=== PATIENT | male | born 1955 | race Caucasian/White ===

== ENCOUNTER 2017-07-26 08:00 | Day surgery (SDC) | payer OTHER ==
[~2017-07-26 08:00] MED LIST: BENZONATATE100 M1 PO; BYSTOLIC5 MG PO; PRILOSEC20 M1 PO; ZYRTEC 10MG TAB10 MG PO
--- NOTE | 2017-07-26 09:24 | Operative Note ---
Colonoscopy ([place]) Procedure date: 07/26/17 Date of : 59 Procedure:Colonoscopy Colonoscopy with cold snare polypectomy Indications: Mr. Reynolds is a 62-year-old gentleman who is here for follow-up screening/ surveillance colonoscopy. He did have a colonoscopy in May 2010 (Dr. Quentin Patel) at which time a single sigmoid 5 mm polyp (tubular adenoma 1) was removed. The patient does state that his maternal uncle had colon cancer. He does have some occasional constipation. He reports no abdominal pain, weight loss, change in his bowel habits or rectal bleeding. Performing Provider: Sam Henderson MD Referrring Provider: Dillon Robles M.D. Sedation: Fentanyl 100 mg IV/Versed 6 mg IV Procedure: Prior to the procedure, a history and physical exam was performed, and patient medications and allergies were reviewed. The risks and benefits of the procedure and the sedation options and risks were discussed with the patient. All questions were answered and informed consent was obtained. Patient identification and proposed procedure were verified by the physician and the nurse. The patient was placed in a left lateral decubitus position. Throughout the procedure, the patient's blood pressure, pulse, and oxygen saturations were monitored continuously. Findings: On digital rectal examination there was normal rectal tone. There were no external hemorrhoids. The prostate was 2+, moderately firm but smooth and symmetric without nodules. The colonoscope was introduced through the anal canal to the rectum and advanced to the cecum. The ileocecal valve and appendiceal orifice were identified. The scope was advanced a short distance into the ileum which appeared grossly normal. The scope was then withdrawn into the colon. There were 2 colon polyps identified in the cecum 1 and descending 1. These ranged in size from 5-6 mm and were all removed via cold snare polypectomy. The remaining cecum, ascending, transverse, descending, sigmoid and rectum were grossly normal. There were no other mucosal abnormalities identified. Upon retroflexion within the rectum there were grade 1 internal hemorrhoids. Impressions: 1. Colonic polyps 2 2. Grade 1 internal hemorrhoids Recommendations: I will follow up the polyp pathology and recommend repeat colonoscopy again in 5 years based upon the polyp histology. I would encourage fiber supplementation on a long-term daily maintenance basis. Complications: None EBL (ml): 0 at 0967
[2017-07-26 15:05] VITALS: BP 132/84
== END 2017-07-26 10:15 | disposition home or self-care (01) ==
LOC: SDC 08:00
PROVIDERS: Internal Medicine Gastroenterology
PROC: 0DBM8ZX Excision of Descending Colon, Via Natural or Artificial Opening Endoscopic, Diagnostic (ICD-10-PCS; 2017-07-26)
PROC: 0DBH8ZX Excision of Cecum, Via Natural or Artificial Opening Endoscopic, Diagnostic (ICD-10-PCS; principal; 2017-07-26 09:00)
DX: Z12.11 Encounter for screening for malignant neoplasm of colon (principal); D12.4 Benign neoplasm of descending colon; D12.0 Benign neoplasm of cecum; K64.0 First degree hemorrhoids; Z80.0 Family history of malignant neoplasm of digestive organs; Z87.19 Personal history of other diseases of the digestive system